=== PATIENT | female | born 1970 | race Caucasian/White ===

== ENCOUNTER → 2024-03-25 08:25 | Outpatient (BNVA) | payer OTHER, SELFPAY | PROVIDERS: Visit Provider Nurse Practitioner | DX: R07.9 Chest pain, unspecified (principal) | CPT/HCPCS: 93005 ==

== ENCOUNTER 2024-04-30 21:29 | Emergency (ER) | payer OTHER, SELFPAY ==
[2024-04-30 21:40] VITALS: BP 144/89; PULSE 89; RESP 18; TEMP 36.7; O2SAT 94; BMI 38.2
--- NOTE | 2024-04-30 22:12 | CTR_ITS ---
PROCEDURE INFORMATION: Exam: CT Abdomen And Pelvis Without Contrast Exam date and time: 04/30/2024 10:41 PM Age: 53 years old Clinical indication: Abdominal pain; Localized; Left; Prior surgery; Surgery date: 6+ months; Surgery type: Tubal; Additional info: Flank pain TECHNIQUE: Imaging protocol: Computed tomography of the abdomen and pelvis without contrast. Radiation optimization: All CT scans at this facility use at least one of these dose optimization techniques: automated exposure control; mA and/or kV adjustment per patient size (includes targeted exams where dose is matched to clinical indication); or iterative reconstruction. COMPARISON: No relevant prior studies available. RADIATION DOSE METRICS: Total DLP (mGy-cm): 1073.63 FINDINGS: Liver: Unremarkable. No mass. Gallbladder and biliary ducts: Noncalcified gallstone. No acute cholecystitis. Pancreas: Unremarkable. No ductal dilation. Spleen: Unremarkable. No mass. Adrenal glands: Unremarkable. No mass. Kidneys and ureters: Moderate left hydronephrosis with a 0.9 cm in the left proximal ureter. Stomach and bowel: Mild colonic diverticulosis. No acute diverticulitis. No significant mucosal thickening. No bowel obstruction. Appendix: No evidence of appendicitis. Intraperitoneal space: No free air. No significant fluid collection. Vasculature: No abdominal aortic aneurysm. Lymph nodes: No enlarged lymph nodes. Urinary bladder: Unremarkable as visualized. Reproductive: Unremarkable as visualized. Bones/joints: No acute fracture. No suspicious lesion. Soft tissues: No bowel containing hernia. CT/CT abdomen pelvis wo con [id number] IMPRESSION: Moderate left hydronephrosis with a 0.9 cm in the left proximal ureter. Recommend urology consultation.
[2024-04-30 23:20] LABS: Basophils % 0.2 %; Eosinophils % 0.1 %; Hematocrit 47.7 % (36-47); Lymphocytes % 13.8 %; Mean Corpuscular HGB Conc 31.9 g/dL (30-55); Mean Corpuscular Hemoglobin 26.6 pg (27-33); Mean Corpuscular Volume 83.4 fl (85-98); Mean Platelet Volume 10.2 fL (7.4-10.4); Monocytes # 0.7 10^3/uL (0.2-0.9); Monocytes % 4.7 %; Neutrophils % 80.9 %; Nucleated Red Blood Cells % 0 %; Platelet Count 345 10^3/cmm (157-399); Red Blood Count 5.72 10^6/uL (3.85-5.65); Red Cell Distribution Width 14.4 % (12.1-15.1); White Blood Count 14.58 10^3/uL (3.29-11.43)
[2024-04-30 23:38] LABS: Alanine Aminotransferase 16 U/L (0-33); Albumin Level 4.4 g/dL (3.5-5.2); Alkaline Phosphatase 117 U/L (35-105); Anion Gap 18.6 (5-19); Aspartate Amino Transferase 16 U/L (0-32); Blood Urea Nitrogen 17 mg/dL (6-20); Calcium 9.7 mg/dL (8.5-10.5); Carbon Dioxide 25 mmol/L (22-29); Chloride 101 mmol/L (98-107); Creatinine Clr Calc Pharmacy 98.6041; Globulin 3.1 g/dL (1.3-4.6); Glomerular Filtration Rate 75.3 mL/min (90-130); Glucose 149 mg/dL (65-115); Osmolality Calculated 294 mOsm/kg (285-295); Potassium 4.6 mmol/L (3.5-5.1); Sodium 140 mmol/L (136-145); Total Bilirubin 0.6 mg/dL (0.15-1.2); Total Protein 7.5 g/dL (6.6-8.7)
[2024-04-30 23:39] LABS: Lactic Sepsis W/Reflex 0.7 mmol/L (0.5-2.2)
--- NOTE | 2024-05-01 00:38 | ED_ITS ---
HPI - Abdominal Pain 2 General: Chief Complaint: Abdominal Pain Stated Complaint: L. side pain Time Seen by Provider: 05/01/24 00:29 History of Present Illness: 53-year-old female with a history of kid ora stones who presents to the emergency room with flank pain. This been present all day today. She has had nausea and vomiting. No fevers. Left lower pain and left flank pain. Secular started couple days ago. She has had nausea and vomiting. Related Data Previous Rx's Medication Instructions Recorded naproxen 500 mg tablet 500 mg PO BID #30 tabs 03/25/24 prednisone 20 mg tablet See Rx Instructions PO DAILY #11 03/25/24 tabs celecoxib 200 mg capsule (Celebrex) 200 mg PO BID #180 caps 03/29/24 omeprazole 40 mg capsule,delayed 40 mg PO DAILY #90 caps 03/29/24 release cephalexin 500 mg capsule 500 mg PO TID 10 days #30 caps 05/01/24 hydrocodone 5 mg-acetaminophen 325 1 tab PO Q6H PRN pain #20 tabs 05/01/24 mg tablet ondansetron 8 mg disintegrating 8 mg PO Q6H #14 tabs 05/01/24 tablet tamsulosin 0.4 mg capsule (Flomax) 0.4 mg PO DAILY #30 caps 05/01/24 Allergies Allergy/AdvReac Type Severity Reaction Status Date / Time No Known Allergies Allergy Verified 04/30/24 21:43 Review of Systems 2 Narrative: Constitutional symptoms: Negative except as documented in HPI. Skin symptoms: Negative except as documented in HPI. Eye symptoms: Negative except as documented in HPI. ENMT symptoms: Negative except as documented in HPI. Respiratory symptoms: Negative except as documented in HPI. Cardiovascular symptoms: Negative except as documented in HPI. Gastrointestinal symptoms: Negative except as documented in HPI. Genitourinary symptoms: Negative except as documented in HPI. Musculoskeletal symptoms: Negative except as documented in HPI. Neurologic symptoms: Negative except as documented in HPI. Psychiatric symptoms: Negative except as documented in HPI. Endocrine symptoms: Negative except as documented in HPI. PFSH ED 2 PFSH: Social History Smoking and tobacco/nicotine status: current every day tobacco/nicotine user Physical Exam 2 Narrative: EXAM NARRATIVE: General: Alert, no acute distress. Skin: Warm, dry. Head: Normocephalic, atraumatic. Neck: Supple, trachea midline. Eye: Extraocular movements are intact. Ears, nose, mouth and throat: mucosa moist. Cardiovascular: Regular, Normal peripheral perfusion. Respiratory: Lungs are clear to auscultation, respirations are non-labored, breath sounds are equal, Symmetrical chest wall expansion. Gastrointestinal: Soft, left flank pain, Non distended Musculoskeletal: Normal ROM, no deformity. Neurological: Alert and oriented, No focal neurological deficit observed. Psychiatric: Cooperative, appropriate mood & affect. Course 2 Vital Signs: Vital signs: Vital Signs Temperature 98.1 F 04/30/24 21:40 Pulse Rate 89 04/30/24 21:40 Respiratory Rate 18 05/01/24 00:48 Blood Pressure 144/89 04/30/24 21:40 Pulse Oximetry 93 05/01/24 00:48 Oxygen Delivery Me thod Room Air 04/30/24 21:40 MDM - Abdominal Pain Medical Decision Making Medical decision making: Differential diagnosis including but not limited to and based on the above HPI, review of systems and physical exam: Ureterolithiasis. Urinary tract infection. Appendicitis. Cholecystis. Musculoskeletal / back pain. Pyelonephritis Orders placed to evaluate differential diagnosis based on the above differential, HPI and physical exam Lab Review: Laboratory results were reviewed and interpreted by myself the emergency room physician. Mild leukocytosis with a white count 14.5. BUN/creatinine are normal at [address] of the abdomen pelvis shows proximal left kidney stone that is 9 mm with hydronephrosis. This was reviewed and interpreted by myself the emergency room physician. I also reviewed the radiology report. I reviewed the patient's medical record. Reexamination: Patient has some improvement of pain after Toradol and Dilaudid and Zofran and fluids. Assessment and plan: Ureterolithiasis Dehydration ?IV Rocephin, IV normal saline bolus, IV Dilaudid, IV Toradol and IV Zofran in the emergency room. Pharmacy is closed so p.o. [place] and Zofran sent home with the patient. - Discharged home - Discussed plan with patient. Answered any questions. - Evaluation and treatment of this problem were appropriate in the emergency setting. Lab Data 04/30/24 23:10 04/30/24 23:10 Labs/Radiology: Radiology Impressions Abdomen/Pelvis CT 04/30/24 22:12 IMPRESSION: Moderate left hydronephrosis with a 0.9 cm in the left proximal ureter. Recommend urology consultation. Laboratory Results WBC 14.58 10^3/uL (3.29-11.43) H 04/30/24 23:10 RBC 5.72 10^6/uL (3.85-5.65) H 04/30/24 23:10 Hgb 15.20 g/dL (11.27-16.99) 04/30/24 23:10 Hct 47.7 % (36-47) H 04/30/24 23:10 MCV 83.4 fl (85-98) L 04/30/24 23:10 MCH 26.6 pg (27-33) L 04/30/24 23:10 MCHC 31.9 g/dL (30-55) 04/30/24 23:10 RDW 14.4 % (12.1-15.1) 04/30/24 23:10 Plt Count 345 10^3/cmm (157-399) 04/30/24 23:10 MPV 10.2 fL (7.4-10.4) 04/30/24 23:10 Neut % (Auto) 80.9 % 04/30/24 23:10 Lymph % (Auto) 13.8 % 04/30/24 23:10 [place] % (Auto) 4.7 % 04/30/24 23:10 Eos % (Auto) 0.1 % 04/30/24 23:10 Baso % (Auto) 0.2 % 04/30/24 23:10 Neut # (Auto) 11.80 10^3/uL (1.8-7.7) H 04/30/24 23:10 Lymph # (Auto) 2.0 10^3/uL (0.8-4.8) 04/30/24 23:10 [place] # (Auto) 0.7 10^3/uL (0.2-0.9) 04/30/24 23:10 Eos # (Auto) 0.0 10^3/uL (0.0-0.8) 04/30/24 23:10 Baso # (Auto) 0.0 10^3/uL (0.0-0.1) 04/30/24 23:10 Nucleated RBC % (auto) 0 % 04/30/24 23:10 Nucleated RBCs # 0.0 /100WBC 04/30/24 23:10 Sodium 140 mmol/L (136-145) 04/30/24 23:10 Potassium 4.6 mmol/L (3.5-5.1) 04/30/24 23:10 Chloride 101 mmol/L (98-107) 04/30/24 23:10 Carbon Dioxide 25 mmol/L (22-29) 04/30/24 23:10 Anion Gap 18.6 (5-19) 04/30/24 23:10 BUN 17 mg/dL (6-20) 04/30/24 23:10 Creatinine 0.8 mg/dL (0.5-0.9) 04/30/24 23:10 GFR Calculation 75.3 mL/min (90-130) L 04/30/24 23:10 Glucose 149 mg/dL (65-115) H 04/30/24 23:10 Calculated Osmolality 294 mOsm/kg (285-295) 04/30/24 23:10 Lactic Acid 0.7 mmol/L (0.5-2.2) 04/30/24 23:10 Calcium 9.7 mg/dL (8.5-10.5) 04/30/24 23:10 Total Bilirubin 0.6 mg/dL (0.15-1.2) 04/30/24 23:10 AST 16 U/L (0-32) 04/30/24 23:10 ALT 16 U/L (0-33) 04/30/24 23:10 Alkaline Phosphatase 117 U/L (35-105) H 04/30/24 23:10 Total Protein 7.5 g/dL (6.6-8.7) 04/30/24 23:10 Albumin 4.4 g/dL (3.5-5.2) 04/30/24 23:10 Globulin 3.1 g/dL (1.3-4.6) 04/30/24 23:10 Urine Color Dark yellow (Yellow) A 05/01/24 00:42 Urine Appearance Clear (CLEAR) 05/01/24 00:42 Urine pH 6.5 (5-7) 05/01/24 00:42 Ur Specific [place] 1.034 (1.005-1.030) H 05/01/24 00:42 Urine Protein 1+ (Negative) A 05/01/24 00:42 Urine Glucose (UA) Negative (Normal) 05/01/24 00:42 Urine Ketones Trace (Negative) 05/01/24 00:42 Urine Blood 3+ (Negative) A 05/01/24 00:42 Urine Nitrate Negative (Negative) 05/01/24 00:42 Urine Bilirubin Negative (Negative) 05/01/24 00:42 Urine Urobilinogen 1.0 mg/dL (Negative) 05/01/24 00:42 Ur Leukocyte Esterase Trace (Negative) A 05/01/24 00:42 Urine RBC >100 /hpf (0-2) H 05/01/24 00:42 Urine WBC 0-5 /hpf (0-5) 05/01/24 00:42 Ur Squamous Epith Cells 6-10 /hpf (0-5) 05/01/24 00:42 Amorphous Sediment Not Reportable 05/01/24 00:42 Urine Bacteria 1+ /hpf (NONE) H 05/01/24 00:42 Hyaline Casts 1.21 /lpf 05/01/24 00:42 All radiology interpretation(s) finalized by discharge Discharge Plan Discharge Patient Disposition: Home Clinical Impression: Ureterolithiasis, Dehydration Condition: Stable Prescriptions: New hydrocodone-acetaminophen 5-325 mg tablet 1 tab PO Q6H PRN (Reason: pain) Qty: 20 0RF ondansetron 8 mg tablet,disintegrating 8 mg PO Q6H Qty: 14 0RF Rx Instructions: Take 1/2-1 tab every 6 hours as needed for nausea and vomiting tamsulosin [Flomax] 0.4 mg capsule 0.4 mg PO DAILY Qty: 30 0RF cephalexin 500 mg capsule 500 mg PO TID 10 Days Qty: 30 0RF No Action omeprazole 40 mg capsule,delayed release(DR/EC) 40 mg PO DAILY Qty: 90 2RF celecoxib [Celebrex] 200 mg capsule 200 mg PO BID Qty: 180 2RF naproxen 500 mg tablet 500 mg PO BID Qty: 30 0RF prednisone 20 mg tablet See Rx Instructions PO DAILY Qty: 11 0RF Rx Instructions: Take 2 tabs daily x 3 days, 1 tablet daily x 3 days then 1/2 tab x 4 days. Discharge Orders: Discharge ED (Routine); Ordered 05/01/24 Ordered By: Mayra Walters Referrals: Cuco Reese [Referring] - 1-3 days (Please call for an appointment with Dr. Reese's office or with the urologist of your choosing.) Discharge Diet: Advance as tolerated Patient Instructions: Kidney Stones (ED), How to Strain Your Urine (ED), Opioid Safety, Pain Management Activity Restrictions/Additional Instructions: Call for appointment with urology. If fever (temp >100.4) develops return to the emergency room immediately, as this is an emergency. Take nausea medication prior to taking pain medications. Thank you for choosing [facility] for your healthcare needs today. Please realize this is an emergency room and that we are providing you with a medical screening exam and this may not be complete and all inclusive of all the testing and or work up that you may need to determine your ailment or severity of your illness. You have been screened and evaluated and felt safe for discharge. Health conditions do change or evolve sometimes and as such it is important that you follow up with your Primary Doctor to be re checked, 3-5 days is a general good time frame for follow up. You are always welcome to return to the ED for re assessment if your symptoms are worsening or you have new concerns Coding Level of Care Code ED [employer] for [employer] Flores
[2024-05-01] MEDS: ondansetron 2 mg/ML SDV 2 mL 8 MG IVP (00:44)
[2024-05-01] MEDS: ketorolac 30 mg/mL INJ IVP (00:46)
[2024-05-01] MEDS: cefTRIAXone 1,000 mg SDV 1000 MG IVP (00:47)
[2024-05-01 00:48] VITALS: RESP 18; O2SAT 93
[2024-05-01] MEDS: HYDROmorphone 1 mg/mL INJ 1 mL IVP (00:48)
[2024-05-01] MEDS: sodium chloride 0.9% 1,000 ML 999 ML IV (00:48)
[2024-05-01 00:50] LABS: Bilirubin Urine Negative (Negative); Blood Urine 3+ (Negative); Glucose Urine UA Negative (Normal); Ketones Urine Trace (Negative); Leukocyte Esterase Urine Trace (Negative); Nitrate Urine Negative (Negative); Protein Urine 1+ (Negative); Urine Appearance Clear (CLEAR); Urine Color Dark Yellow (Yellow); pH Urine 6.5 (5-7)
[2024-05-01 00:54] LABS: Bacteria Urine 1+ /hpf; Hyaline Casts Urine 1.21 /lpf; RBC Urine >100 /hpf (0-2); WBC Urine 0-5 /hpf (0-5)
[2024-05-01 00:56] LABS: Add Urine Culture? Yes; Specific Gravity, Urine 1.034 (1.005-1.030)
[2024-05-01] MEDS: HYDROcodone-acetaminophen 5-325 mg Tablet 2 TAB PO (02:26)
[2024-05-01] MEDS: ondansetron 4 MG Tablet 8 MG PO (02:26)
[2024-05-01 02:29] VITALS: BP 136/80; PULSE 88; RESP 18; O2SAT 94
--- NOTE | 2024-05-01 14:36 | PC.SOCIAL ---
Urology Referral Voicemail received from patient's about urology referral, and needing referral faxed to [facility]. Attempted to return call, and could not reach. Referral faxed to [facility] at this time.
== END 2024-05-01 02:30 | disposition home or self-care (01) ==
PROVIDERS: Emergency Provider Emergency Medicine
DX: N20.1 Calculus of ureter (principal); Z87.442 Personal history of urinary calculi; E86.0 Dehydration; Z72.0 Tobacco use
CPT/HCPCS: 36415; 74176; 80053; 81001; 83605; 85025; 87086; 96374; 96375; 99285; J0696; J1171; J1885; J2405; J7030; Q0162

== ENCOUNTER → 2024-05-06 11:46 | Outpatient (BNVA) | payer OTHER, SELFPAY | PROVIDERS: Visit Provider Nurse Practitioner | DX: R30.0 Dysuria (principal); N20.0 Calculus of kidney; N20.1 Calculus of ureter | CPT/HCPCS: 81000 ==